=== PATIENT | male | born 1955 | race American Indian/Alaskan Native ===

== ENCOUNTER 2018-04-24 12:49 | Inpatient (IN) | payer OTHER ==
[2018-04-24 14:06] LABS: Basophils % (Auto) 0.3 % (0.0-1.8); Eosinophils % (Auto) 0.1 % (0.0-4.3); Hematocrit 42.5 % (35.5-45.6); Hemoglobin 14.6 gm/dl (11.8-15.2); Lymphocytes # (Auto) 1.3 K/mm3 (1.2-5.4); Lymphocytes % (Auto) 13.5 % (13.4-35.0); Mean Corpuscular HGB Conc 34 % (32-34); Mean Corpuscular Hemoglobin 29 pg (28-32); Mean Corpuscular Volume 85 fl (84-94); Monocytes # (Auto) 0.7 K/mm3 (0.0-0.8); Monocytes % (Auto) 7.5 % (0.0-7.3); Platelet Count 309 K/mm3 (140-440); Red Blood Count 5.01 M/mm3 (3.65-5.03); Red Cell Distribution Width 14.4 % (13.2-15.2)
[2018-04-24 14:24] LABS: BUN/Creatinine Ratio 19; Blood Urea Nitrogen 17 mg/dL (9-20); Calcium 8.6 mg/dL (8.4-10.2); Hemolysis Index 15
[2018-04-24] MEDS ORDERED: NACL 0.9% 1000 ML 1,000 ML IV ONE (14:27)
[2018-04-24] MEDS ORDERED: TYLENOL PO ONE (14:27)
--- NOTE | 2018-04-24 14:32 | Emergency Department Report ---
ED General Adult HPI - General Chief complaint: Weakness Stated complaint: WEAKNESS ALL OVER BODY Time Seen by Provider: 04/24/18 14:17 Source: patient Mode of arrival: Ambulatory Limitations: No Limitations - History of Present Illness Initial comments: Patient is 63 years old male with history of diabetes. Patient presented to the ER complaining of one-week history of generalized weakness and fever and chills and body aches. Patient stated that he went to his doctor twice and he was advised to take Motrin [id number] that his symptoms are not improving. Patient denied any cough, shortness of breath, nausea or vomiting. Patient denied any urinary symptoms. Patient denied any recent travel. 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 - Related Data Allergies Allergy/AdvReac Type Severity Reaction Status Date / Time No Known Allergies Allergy Unverified 04/24/18 13:22 ED Review of Systems ROS: Stated complaint: WEAKNESS ALL OVER BODY Other details as noted in HPI Comment: All other systems reviewed and negative Constitutional: chills, fever Respiratory: denies: cough Cardiovascular: denies: chest pain, palpitations Gastrointestinal: denies: abdominal pain, nausea, vomiting Neurological: weakness (generalized). denies: headache, numbness, paresthesias , confusion, abnormal gait, vertigo ED Past Medical Hx - Past Medical History Previous Medical History?: Yes Hx Diabetes: Yes Additional medical history: weakness - Surgical History Past Surgical History?: Yes Additional Surgical History: Right cranial surgery, Left lung surgery - Social History Smoking Status: Former Smoker Substance Use Type: Prescribed ED Physical Exam - General Limitations: No Limitations General appearance: alert, anxious - Eye Eye exam: Present: normal appearance, PERRL - ENT ENT exam: Present: normal exam, normal orophraynx, mucous membranes moist - Respiratory Respiratory exam: Present: normal lung sounds bilaterally - Cardiovascular Cardiovascular Exam: Present: regular rate, normal rhythm, normal heart sounds - GI/Abdominal GI/Abdominal exam: Present: soft, normal bowel sounds. Absent: distended, tenderness, guarding, rebound, rigid, organomegaly, mass, bruit, pulsatile mass - Extremities Exam Extremities exam: Present: normal inspection, full ROM, normal capillary refill. Absent: pedal edema, calf tenderness - Back Exam Back exam: Present: normal inspection, full ROM. Absent: tenderness, CVA tenderness (R), CVA tenderness (L), muscle spasm, paraspinal tenderness - Neurological Exam Neurological exam: Present: alert, oriented X3, CN II-XII intact, normal gait - Skin Skin exam: Present: warm, intact, normal color ED Course Vital Signs 04/24/18 04/24/18 04/24/18 13:22 14:42 18:34 Temperature 100.4 F H 98.3 F Pulse Rate 94 H 68 Respiratory 18 18 20 Rate Blood Pressure 113/55 Blood Pressure 112/55 [Left] O2 Sat by Pulse 97 98 Oximetry ED Medical Decision Making - Lab Data Result diagrams: 04/24/18 13:41 04/24/18 13:41 - Radiology Data Radiology results: report reviewed Referring Physician: LISA DUDLEY Patient Name: CRUZ MULTANI Date of : 1955 Sex: Male Report Date: 2018-04-24 Report Status: [place] [address] XRay Report Signed Patient: CRUZ MULTANI MR#: [id number] : 1955 Acct:[id number] Age/Sex: 63 / M ADM Date: 04/24/18 Loc: ED Attending Dr: Ordering Physician: LISA DUDLEY Date of Service: 04/24/18 Procedure(s): XR chest 1V ap Accession Number(s): [id number] cc: LISA DUDLEY Fluoro Time In Minutes: FINAL REPORT EXAM: XR CHEST 1V AP HISTORY: FEVER TECHNIQUE: Frontal semi erect portable chest x-ray Comparison: None FINDINGS: There is an ill-defined right infrahilar very fine reticular infiltrate. Heart size is normal. Lungs are otherwise clear. There is slight blunting of left costophrenic sulcus, chronicity is uncertain. IMPRESSION: Right middle lobe or lower lobe infiltrate. Need two view chest to localize. Mild blunting of left costophrenic sulcus may represent effusion or chronic scar. Transcribed By: COLLEEN Dictated By: MINNIE LOPEZ Electronically Authenticated By: MINNIE LOPEZ Signed Date/Time: 04/24/18 160 DD/ 04 TD/TT: 04/24/18 1605 - Medical Decision Making I discuss the patient was Dr. Cortés, he agreed to admit the patient to medical service. Critical care attestation.: If time is entered above; I have spent that time in minutes in the direct care of this critically ill patient, excluding procedure time. ED Disposition Clinical Impression: Right lower lobe pneumonia, Influenza A, Elevated liver enzymes Disposition: OP ADMIT IP TO THIS HOSP Is pt being admited?: Yes Condition: Stable Instructions: Bacterial Pneumonia (ED) Referrals: PRIMARY CARE, [Primary Care Provider] - 3-5 Days
[2018-04-24 14:51] LABS: Bacteria,Urine 1+ /HPF (Negative); Bilirubin,Urine NEG (Negative); Blood,Urine LG (Negative); Color,Urine Yellow (Yellow); Hyaline Casts,Urine 1 /LPF; Mucus,Urine FEW /HPF
[2018-04-24 15:33] LABS: Albumin 3.5 g/dL (3.9-5)
--- NOTE | 2018-04-24 16:13 | XRay Report ---
FINAL REPORT EXAM: XR CHEST 1V AP HISTORY: FEVER TECHNIQUE: Frontal semi erect portable chest x-ray Comparison: None FINDINGS: There is an ill-defined right infrahilar very fine reticular infiltrate. Heart size is normal. Lungs are otherwise clear. There is slight blunting of left costophrenic sulcus, chronicity is uncertain. IMPRESSION: Right middle lobe or lower lobe infiltrate. Need two view chest to localize. Mild blunting of left costophrenic sulcus may represent effusion or chronic scar.
[2018-04-24] MEDS ORDERED: ROCEPHIN/NS 1 GM/50 ML 1 GM/50 ML BAG IV ONE (17:30)
[2018-04-24] MEDS ORDERED: ZITHROMAX 500 MG in NACL 0.9% 250ML 250 ML IV ONE (17:30)
[2018-04-24] MEDS ORDERED: TYLENOL PO PRN (18:35)
[2018-04-24] MEDS ORDERED: PROVENTIL IH PRN (18:35)
[2018-04-24] MEDS ORDERED: SODIUM CHLORIDE FLUSH SYRINGE 10 ML IV PRN (18:35)
[2018-04-24] MEDS ORDERED: ZOFRAN IV PRN (18:35)
--- NOTE | 2018-04-24 19:32 | History and Physical Report ---
History of Present Illness Chief complaint: I feel sick History of present illness: 63 YO Male with DM presents to ED for evaluation. Pt states that he has experienced generalized weakness, subjective fever, shaking chills and body aches for the past week with worsening symptoms over the past 2 days. Patient states that he was seen and evaluated by his PCP twice and treated with outpatient therapy. Pt seen and evaluated in ED and found to have Infleuenza, as well as RLL Pneumonia. Pt denies CP, Palpitations, NVD, Syncope, Trauma, BRBPR, Unintentional Weight loss. 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 Pt admitted to telemetry. Past History Past Medical History: diabetes Past Surgical History: Other (Left Lung, Brain surgery) Social history: single. denies: smoking, alcohol abuse, prescription drug abuse Family history: hypertension Medications and Allergies Allergies Allergy/AdvReac Type Severity Reaction Status Date / Time No Known Allergies Allergy Unverified 04/24/18 13:22 Active Meds: Active Medications Acetaminophen (Tylenol) 650 mg PO Q4H PRN PRN Reason: Pain MILD(1-3)/Fever >100.5/PENA Albuterol (Proventil) 2.5 mg IH Q4HRT PRN PRN Reason: Shortness Of Breath Azithromycin 500 mg/ Sodium (Chloride) 250 mls @ 250 mls/hr IV Q24HR JES; Protocol Ceftriaxone Sodium (Rocephin/Ns 1 Gm/50 Ml) 1 gm in 50 mls @ 100 mls/hr IV Q24HR JES; Protocol Ondansetron HCl (Zofran) 4 mg IV Q8H PRN PRN Reason: Nausea And Vomiting Oseltamivir Phosphate (Tamiflu) 75 mg PO BID [facility] Stop: 04/29/18 10:01 Sodium Chloride (Sodium Chloride Flush Syringe 10 Ml) 10 ml IV BID JES Sodium Chloride (Sodium Chloride Flush Syringe 10 Ml) 10 ml IV PRN PRN PRN Reason: LINE FLUSH Review of Systems Constitutional: fever, sweats, fatigue, weakness, malaise, no weight loss, no weight gain Ears, nose, mouth and throat: no ear pain, no ear discharge, no tinnitis, no decreased hearing, no nose pain, no nasal congestion, no nasal discharge Cardiovascular: decreased exercise tolerance, no chest pain, no orthopnea, no palpitations, no rapid/irregular heart beat, no edema, no syncope Respiratory: no cough, no cough with sputum, no excessive sputum, no hemoptysis , no shortness of breath Gastrointestinal: no abdominal pain, no nausea, no vomiting, no diarrhea, no constipation Genitourinary Male: no flank pain, no discharge, no urinary frequency, no urinary hesitancy, no nocturia Rectal: no pain, no incontinence, no bleeding Musculoskeletal: no neck stiffness, no neck pain, no shooting arm pain, no arm numbness/tingling, no low back pain, no shooting leg pain Integumentary: no rash, no pruritis, no redness, no sores, no wounds, no jaundice Neurological: no head injury, no transient paralysis, no paralysis, no weakness , no parathesias, no numbness, no tingling, no seizures, no syncope Psychiatric: no anxiety, no memory loss, no change in sleep habits, no sleep disturbances, no insomnia, no hypersomnia, no change in appetite, no change in libido, no suicidal ideation Endocrine: no cold intolerance, no heat intolerance, no polyphagia, no excessive thirst, no polydipsia, no polyuria Hematologic/Lymphatic: no easy bruising, no easy bleeding, no lymphadenopathy, no lymphedema Allergic/Immunologic: no urticaria, no allergic rhinitis, no wheezing, no persistent infections, no anaphylaxis, no angioedema Exam - Constitutional Vitals: Temp Pulse Resp BP Pulse Ox 98.3 F 68 20 112/55 98 04/24/18 18:34 04/24/18 18:34 04/24/18 18:34 04/24/18 18:34 04/24/18 18:34 General appearance: Present: mild distress, disheveled - EENT Eyes: Present: PERRL ENT: hearing intact, clear oral mucosa - Neck Neck: Present: supple, normal ROM - Respiratory Respiratory effort: normal Respiratory: right: diminished, rhonchi, bilateral: CTA - Cardiovascular Heart Sounds: Present: S1 & S2. Absent: rub, click - Extremities Extremities: pulses symmetrical, No edema Peripheral Pulses: within normal limits - Abdominal General gastrointestinal: Present: soft, non-tender, non-distended, normal bowel sounds Male genitourinary: Present: normal - Integumentary Integumentary: Present: clear, warm, dry - Musculoskeletal Musculoskeletal: gait normal, strength equal bilaterally - Psychiatric Psychiatric: appropriate mood/affect, intact judgment & insight - Neurologic Neurologic: CNII-XII intact, moves all extremities Results - Labs CBC & Chem 7: 04/24/18 13:41 04/24/18 13:41 Labs: Abnormal lab results 04/24/18 04/24/18 04/24/18 Range/Units 13:38 13:41 13:41 [place] % (Auto) 7.5 H (0.0-7.3) % Seg Neutrophils % 78.6 H (40.0-70.0) % Sodium 127 L (137-145) mmol/L Chloride 83.4 L (98-107) mmol/L Glucose 122 H (75-100) mg/dL POC Glucose 130 H (70-105) Lactic Acid (0.7-2.0) mmol/L Total Bilirubin (0.1-1.2) mg/dL Direct Bilirubin (0-0.2) mg/dL AST (5-40) units/L ALT (7-56) units/L Albumin (3.9-5) g/dL Influenza A (Rapid) (Negative) 04/24/18 04/24/18 04/24/18 Range/Units 14:43 14:43 Unknown [place] % (Auto) (0.0-7.3) % Seg Neutrophils % (40.0-70.0) % Sodium (137-145) mmol/L Chloride (98-107) mmol/L Glucose (75-100) mg/dL POC Glucose (70-105) Lactic Acid 2.10 H* (0.7-2.0) mmol/L Total Bilirubin 1.60 H (0.1-1.2) mg/dL Direct Bilirubin 1.0 H (0-0.2) mg/dL AST 429 H (5-40) units/L ALT 139 H (7-56) units/L Albumin 3.5 L (3.9-5) g/dL Influenza A (Rapid) Positive A (Negative) Assessment and Plan - Patient Problems (1) Sepsis Current Visit: Yes Status: Acute Qualifiers: Sepsis type: sepsis due to unspecified organism Qualified Code(s): A41.9 - Sepsis, unspecified organism Plan to address problem: Sepsis Protocol: Iv antibiotics, IVF resuscitation therapy, serial lactic acid, blood cultures, urinalysis, chest x ray (2) Elevated LFTs Current Visit: Yes Status: Acute Plan to address problem: suspect secondary to Influenza, supportive care, repeat LFT (3) Influenza A Current Visit: Yes Status: Acute Plan to address problem: Tamiflu BID, Airborne precautions, supportive care. (4) Right lower lobe pneumonia Current Visit: Yes Status: Acute Qualifiers: Pneumonia type: due to influenza A virus Qualified Code(s): J11.00 - Influenza due to unidentified influenza virus with unspecified type of pneumonia Plan to address problem: IV antibiotic therapy, treat influenza, supplemental oxygen, nebulizer therapy, Chest x ray. (5) DVT prophylaxis Current Visit: Yes Status: Acute Plan to address problem: SCD to BLE while in bed.
[2018-04-24] MEDS ORDERED: NACL 0.9% 1000 ML IV ONE (19:42)
[2018-04-24] MEDS ORDERED: NACL 0.9% 1000 ML 1,000 ML ONE (20:55)
[2018-04-24] MEDS: TAMIFLU PO SCH (22:46)
[2018-04-24] MEDS: SODIUM CHLORIDE FLUSH SYRINGE 10 ML IV SCH (22:58)
--- NOTE | 2018-04-25 08:58 | Progress Note ---
Assessment and Plan Assessment and plan: Patient is a 63 yo man with a history of Type 2 DM who presented to ED with malaise and fevers. * Influenza A positive * Initial labs: Total bilirubin 1.6 and direct bilirubin 1.0, Na 127. BG 130, AST 429, ALT 130, ALk Phos 96, UA unremarkable for UTI * pCXR IMPRESSION: Right middle lobe or lower lobe infiltrate. Need two view chest to localize. Mild blunting of left costophrenic sulcus may represent effusion or chronic scar==>2v CXR IMPRESSION: Increased patchy pneumonia in the right lower lobe. -Sepsis due to Aspiration Pneumonia: treat with iv abx, ivf, follow cultures -Influenza A infection, Bilingual Speech Therapist exposure: treat with anti-viral -Elevated transaminases: get Abd. U/S, repeat levels in am, treat with IVF -Aspiration Right Pneumonia: get 2 view to localize infiltrate -Type 2 DM: add ssi, ada -DVT prophylaxis: scd and heparin History Interval history: Patient was seen and examined. Follow-up on current diagnosis fevers. Overnight uneventful. Patient denies any chest pain, shortness breath, nausea/vomiting or severe headaches. Imaging, nursing note, chart, labs and old chart reviewed. Discussed with patient. Hospitalist Physical - Physical exam Narrative exam: GEN: WDWN, NAD, Awake, Alert, Orientated HEENT: NCAT, EOMI, PERRL, OP Clear NECK: supple, no adenopathy, no thyromegaly, no JVD CVS/HEART: RRR, normal S1S2, pulses present bilaterally CHEST/LUNGS: diminished bs bilateral, Symmetrical chest expansion, good air entry bilaterally GI/Abdomen: soft, NTND, good bowel sounds, no guarding or rebound /Bladder: no suprapubic tenderness, no CVA or paraspinal tenderness EXT/Skin: no c/c/e, no obvious rash MSK: FROM x 4 Neuro: CN 2-12 grossly intact, no new focal deficits Psych: calm - Constitutional Vitals: Temp Pulse Resp BP Pulse Ox 98.4 F 72 18 115/64 91 04/25/18 06:29 04/25/18 06:29 04/25/18 06:29 04/25/18 06:29 04/25/18 06:29 Results - Labs CBC & Chem 7: 04/24/18 13:41 04/24/18 13:41 Labs: Laboratory Last Values WBC 9.4 K/mm3 (4.5-11.0) 04/24/18 13:41 RBC 5.01 M/mm3 (3.65-5.03) 04/24/18 13:41 Hgb 14.6 gm/dl (11.8-15.2) 04/24/18 13:41 Hct 42.5 % (35.5-45.6) 04/24/18 13:41 MCV 85 fl (84-94) 04/24/18 13:41 MCH 29 pg (28-32) 04/24/18 13:41 MCHC 34 % (32-34) 04/24/18 13:41 RDW 14.4 % (13.2-15.2) 04/24/18 13:41 Plt Count 309 K/mm3 (140-440) 04/24/18 13:41 Lymph % (Auto) 13.5 % (13.4-35.0) 04/24/18 13:41 [place] % (Auto) 7.5 % (0.0-7.3) H 04/24/18 13:41 Eos % (Auto) 0.1 % (0.0-4.3) 04/24/18 13:41 Baso % (Auto) 0.3 % (0.0-1.8) 04/24/18 13:41 Lymph # 1.3 K/mm3 (1.2-5.4) 04/24/18 13:41 [place] # 0.7 K/mm3 (0.0-0.8) 04/24/18 13:41 Eos # 0.0 K/mm3 (0.0-0.4) 04/24/18 13:41 Baso # 0.0 K/mm3 (0.0-0.1) 04/24/18 13:41 Seg Neutrophils % 78.6 % (40.0-70.0) H 04/24/18 13:41 Seg Neutrophils # 7.4 K/mm3 (1.8-7.7) 04/24/18 13:41 Sodium 127 mmol/L (137-145) L 04/24/18 13:41 Potassium 3.7 mmol/L (3.6-5.0) 04/24/18 13:41 Chloride 83.4 mmol/L (98-107) L 04/24/18 13:41 Carbon Dioxide 25 mmol/L (22-30) 04/24/18 13:41 Anion Gap 22 mmol/L 04/24/18 13:41 BUN 17 mg/dL (9-20) 04/24/18 13:41 Creatinine 0.9 mg/dL (0.8-1.5) 04/24/18 13:41 Estimated GFR > 60 ml/min 04/24/18 13:41 BUN/Creatinine Ratio 19 % 04/24/18 13:41 Glucose 122 mg/dL (75-100) H 04/24/18 13:41 POC Glucose 130 (70-105) H 04/24/18 13:38 Lactic Acid 1.40 mmol/L (0.7-2.0) 04/25/18 05:27 Calcium 8.6 mg/dL (8.4-10.2) 04/24/18 13:41 Total Bilirubin 1.60 mg/dL (0.1-1.2) H 04/24/18 14:43 Direct Bilirubin 1.0 mg/dL (0-0.2) H 04/24/18 14:43 Indirect Bilirubin 0.6 mg/dL 04/24/18 14:43 AST 429 units/L (5-40) H 04/24/18 14:43 ALT 139 units/L (7-56) H 04/24/18 14:43 Alkaline Phosphatase 96 units/L (35-129) 04/24/18 14:43 Total Protein 7.4 g/dL (6.3-8.2) 04/24/18 14:43 Albumin 3.5 g/dL (3.9-5) L 04/24/18 14:43 Albumin/Globulin Ratio 0.9 % 04/24/18 14:43 Urine Color Yellow (Yellow) 04/24/18 13:57 Urine Turbidity Slightly-cloudy (Clear) 04/24/18 13:57 Urine pH 6.0 (5.0-7.0) 04/24/18 13:57 Ur Specific [place] 1.012 (1.003-1.030) 04/24/18 13:57 Urine Protein 100 mg/dl mg/dL (Negative) 04/24/18 13:57 Urine Glucose (UA) Neg mg/dL (Negative) 04/24/18 13:57 Urine Ketones Tr mg/dL (Negative) 04/24/18 13:57 Urine Blood Lg (Negative) 04/24/18 13:57 Urine Nitrite Neg (Negative) 04/24/18 13:57 Urine Bilirubin Neg (Negative) 04/24/18 13:57 Urine Urobilinogen 4.0 mg/dL (<2.0) 04/24/18 13:57 Ur Leukocyte Esterase Neg (Negative) 04/24/18 13:57 Urine WBC (Auto) 6.0 /HPF (0.0-6.0) 04/24/18 13:57 Urine RBC (Auto) 4.0 /HPF (0.0-6.0) 04/24/18 13:57 U Epithel Cells (Auto) 1.0 /HPF (0-13.0) 04/24/18 13:57 Urine Bacteria (Auto) 1+ /HPF (Negative) 04/24/18 13:57 Hyaline Casts 1 /LPF 04/24/18 13:57 Urine Mucus Few /HPF 04/24/18 13:57 Influenza A (Rapid) Positive (Negative) A 04/24/18 Unknown Influenza B (Rapid) Negative (Negative) 04/24/18 Unknown
[2018-04-25] MEDS: ROCEPHIN/NS 1 GM/50 ML 1 GM/50 ML BAG IV SCH (10:45)
[2018-04-25] MEDS: SODIUM CHLORIDE FLUSH SYRINGE 10 ML IV SCH ×2 (10:46→21:23)
--- NOTE | 2018-04-25 10:52 | XRay Report ---
FINAL REPORT EXAM: XR CHEST ROUTINE 2V HISTORY: pneumonia COMPARISON: Chest radiograph performed on 04/24/2018 TECHNIQUE: Frontal and lateral views of the chest FINDINGS: The cardiomediastinal silhouette is normal in appearance. There is increased patchy opacity in the right lower lobe. No pleural effusion or pneumothorax. No acute bony or soft tissue abnormality. IMPRESSION: Increased patchy pneumonia in the right lower lobe.
[2018-04-25] MEDS: TAMIFLU PO SCH ×2 (11:36→21:23)
[2018-04-25] MEDS: ZITHROMAX 500 MG in NACL 0.9% 250ML 250 ML IV SCH ×2 (11:37→11:59)
[2018-04-25] MEDS ORDERED: PNEUMOVAX 23 IM ONE (12:00)
--- NOTE | 2018-04-25 19:15 | Ultrasound Report ---
FINAL REPORT EXAM: US ABDOMEN COMPLETE HISTORY: sepsis, elevated LFT TECHNIQUE: Standard ultrasound of the abdomen PRIORS: None. FINDINGS: Examination of the gallbladder is partially collapsed and demonstrates no evidence for gallstones, distention, wall thickening, or pericholecystic fluid. No sonographic Kam's sign is elicited. Common bile duct is normal in diameter measuring 3.8 mm. The liver is normal and homogeneous in echogenicity without focal abnormality or intrahepatic biliary dilatation. The pancreas is normal in thickness without focal abnormality or pancreatic duct dilatation. The spleen is normal in length measuring 8.4 cm and homogeneous in echogenicity without focal abnormalities. Examination of the kidneys demonstrates both to be normal in size and have normal cortical echogenicity and thickness. The right and left kidneys measure 11.7 cm and 11.8 cm in craniocaudal length, respectively. No evidence for hydronephrosis is seen in either kidney. There is a small non shadowing echogenic focus in the upper pole right kidney measuring 3 mm. This may represent a small calculus or vascular calcification. This could also represent a fatty mass such as angiomyolipoma. The inferior vena cava and aorta are normal. Maximum diameter of the aorta is 2.5 cm in its proximal portion. There is an incidental small right pleural effusion. IMPRESSION: 1. No acute abnormality in the abdomen 2. Small echogenic focus in the upper pole right kidney which may represent a small calculus or angiomyolipoma.
[2018-04-26 05:57] LABS: Hematocrit 37.5 % (35.5-45.6); Hemoglobin 12.3 gm/dl (11.8-15.2); Mean Corpuscular HGB Conc 33 % (32-34); Mean Corpuscular Hemoglobin 28 pg (28-32); Mean Corpuscular Volume 84 fl (84-94); Platelet Count 362 K/mm3 (140-440); Red Blood Count 4.44 M/mm3 (3.65-5.03); Red Cell Distribution Width 14.4 % (13.2-15.2)
[2018-04-26 06:02] LABS: Alanine Aminotransferase 100 units/L (7-56); Albumin 3.1 g/dL (3.9-5); BUN/Creatinine Ratio 16; Blood Urea Nitrogen 8 mg/dL (9-20); Calcium 7.8 mg/dL (8.4-10.2); Hemolysis Index 0
[2018-04-26 06:08] LABS: INR 1.01 (0.87-1.13); Partial Thromboplastin Time 30.1 Sec. (24.2-36.6)
--- NOTE | 2018-04-26 06:59 | Progress Note ---
Assessment and Plan Assessment and plan: Patient is a 63 yo man with a history of Type 2 DM who presented to ED with malaise and fevers. * Influenza A positive * Initial labs: Total bilirubin 1.6 and direct bilirubin 1.0, Na 127. BG 130, AST 429, ALT 130, ALk Phos 96, UA unremarkable for UTI * pCXR IMPRESSION: Right middle lobe or lower lobe infiltrate. Need two view chest to localize. Mild blunting of left costophrenic sulcus may represent effusion or chronic scar==>2v CXR IMPRESSION: Increased patchy pneumonia in the right lower lobe. -Sepsis due to Aspiration Pneumonia: treat with iv abx, ivf, follow cultures -Influenza A infection, Wheel Aligner exposure: treat with anti-viral -Elevated transaminases: get Abd. U/S==>Abd u/s Impression: 1. No acute abnormality in the abdomen 2. Small (3mm) echogenic focus in the upper pole right kidney which may represent a small calculus or angiomyolipoma. -Aspiration Right Pneumonia: get 2 view to localize infiltrate -Type 2 DM: add ssi, ada -DVT prophylaxis: scd and heparin Disposition: continue iv abx x today and possibly discharge tomorrow with abx and antiviral for 3 more days History Interval history: Patient was seen and examined. Follow-up on current diagnosis fevers. Overnight uneventful. Patient denies any chest pain, shortness breath, nausea/vomiting or severe headaches. Imaging, nursing note, chart, labs and old chart reviewed. Discussed with patient. Hospitalist Physical - Physical exam Narrative exam: GEN: WDWN, NAD, Awake, Alert, Orientated x 3 HEENT: NCAT, EOMI, PERRL, OP Clear NECK: supple, no adenopathy, no thyromegaly, no JVD CVS/HEART: Regular bradycardia, normal S1S2, pulses present bilaterally CHEST/LUNGS: diminished bs bilateral, Symmetrical chest expansion, good air entry bilaterally GI/Abdomen: soft, NTND, good bowel sounds, no guarding or rebound /Bladder: no suprapubic tenderness, no CVA or paraspinal tenderness EXT/Skin: no c/c/e, no obvious rash MSK: FROM x 4 Neuro: CN 2-12 grossly intact, no new focal deficits Psych: calm - Constitutional Vitals: Temp Pulse Resp BP Pulse Ox 97.7 F 52 L 24 106/69 95 08/20/18 05:44 04/26/18 05:44 04/26/18 05:44 04/26/18 05:44 04/26/18 05:44 General appearance: Absent: mild distress, disheveled Results - Labs CBC & Chem 7: 04/26/18 05:09 04/26/18 05:08 Labs: Laboratory Last Values WBC 4.9 K/mm3 (4.5-11.0) 04/26/18 05:09 RBC 4.44 M/mm3 (3.65-5.03) 04/26/18 05:09 Hgb 12.3 gm/dl (11.8-15.2) 04/26/18 05:09 Hct 37.5 % (35.5-45.6) 04/26/18 05:09 MCV 84 fl (84-94) 04/26/18 05:09 MCH 28 pg (28-32) 04/26/18 05:09 MCHC 33 % (32-34) 04/26/18 05:09 RDW 14.4 % (13.2-15.2) 04/26/18 05:09 Plt Count 362 K/mm3 (140-440) 04/26/18 05:09 Lymph % (Auto) 13.5 % (13.4-35.0) 04/24/18 13:41 [place] % (Auto) 7.5 % (0.0-7.3) H 04/24/18 13:41 Eos % (Auto) 0.1 % (0.0-4.3) 04/24/18 13:41 Baso % (Auto) 0.3 % (0.0-1.8) 04/24/18 13:41 Lymph # 1.3 K/mm3 (1.2-5.4) 04/24/18 13:41 [place] # 0.7 K/mm3 (0.0-0.8) 04/24/18 13:41 Eos # 0.0 K/mm3 (0.0-0.4) 04/24/18 13:41 Baso # 0.0 K/mm3 (0.0-0.1) 04/24/18 13:41 Seg Neutrophils % 78.6 % (40.0-70.0) H 04/24/18 13:41 Seg Neutrophils # 7.4 K/mm3 (1.8-7.7) 04/24/18 13:41 PT 13.8 Sec. (12.2-14.9) 04/26/18 05:08 INR 1.01 (0.87-1.13) 04/26/18 05:08 APTT 30.1 Sec. (24.2-36.6) 04/26/18 05:08 Sodium 137 mmol/L (137-145) D 04/26/18 05:08 Potassium 3.7 mmol/L (3.6-5.0) 04/26/18 05:08 Chloride 96.9 mmol/L (98-107) L 04/26/18 05:08 Carbon Dioxide 27 mmol/L (22-30) 04/26/18 05:08 Anion Gap 17 mmol/L 04/26/18 05:08 BUN 8 mg/dL (9-20) L 04/26/18 05:08 Creatinine 0.5 mg/dL (0.8-1.5) L 04/26/18 05:08 Estimated GFR > 60 ml/min 04/26/18 05:08 BUN/Creatinine Ratio 16 % 04/26/18 05:08 Glucose 148 mg/dL (75-100) H 04/26/18 05:08 POC Glucose 130 (70-105) H 04/24/18 13:38 Lactic Acid 1.40 mmol/L (0.7-2.0) 04/25/18 05:27 Calcium 7.8 mg/dL (8.4-10.2) L 04/26/18 05:08 Total Bilirubin 0.80 mg/dL (0.1-1.2) 04/26/18 05:08 Direct Bilirubin 1.0 mg/dL (0-0.2) H 04/24/18 14:43 Indirect Bilirubin 0.6 mg/dL 04/24/18 14:43 AST 207 units/L (5-40) H 04/26/18 05:08 ALT 100 units/L (7-56) H 04/26/18 05:08 Alkaline Phosphatase 76 units/L (35-129) 04/26/18 05:08 Total Protein 6.1 g/dL (6.3-8.2) L 04/26/18 05:08 Albumin 3.1 g/dL (3.9-5) L 04/26/18 05:08 Albumin/Globulin Ratio 1.0 % 04/26/18 05:08 TSH 1.850 mlU/mL (0.270-4.200) 04/26/18 05:08 Urine Color Yellow (Yellow) 04/24/18 13:57 Urine Turbidity Slightly-cloudy (Clear) 04/24/18 13:57 Urine pH 6.0 (5.0-7.0) 04/24/18 13:57 Ur Specific [place] 1.012 (1.003-1.030) 04/24/18 13:57 Urine Protein 100 mg/dl mg/dL (Negative) 04/24/18 13:57 Urine Glucose (UA) Neg mg/dL (Negative) 04/24/18 13:57 Urine Ketones Tr mg/dL (Negative) 04/24/18 13:57 Urine Blood Lg (Negative) 04/24/18 13:57 Urine Nitrite Neg (Negative) 04/24/18 13:57 Urine Bilirubin Neg (Negative) 04/24/18 13:57 Urine Urobilinogen 4.0 mg/dL (<2.0) 04/24/18 13:57 Ur Leukocyte Esterase Neg (Negative) 04/24/18 13:57 Urine WBC (Auto) 6.0 /HPF (0.0-6.0) 04/24/18 13:57 Urine RBC (Auto) 4.0 /HPF (0.0-6.0) 04/24/18 13:57 U Epithel Cells (Auto) 1.0 /HPF (0-13.0) 04/24/18 13:57 Urine Bacteria (Auto) 1+ /HPF (Negative) 04/24/18 13:57 Hyaline Casts 1 /LPF 04/24/18 13:57 Urine Mucus Few /HPF 04/24/18 13:57 Influenza A (Rapid) Positive (Negative) A 04/24/18 Unknown Influenza B (Rapid) Negative (Negative) 04/24/18 Unknown
[2018-04-26] MEDS: TAMIFLU PO SCH ×2 (10:02→22:55)
[2018-04-26] MEDS: SODIUM CHLORIDE FLUSH SYRINGE 10 ML IV SCH ×2 (10:04→22:56)
[2018-04-26] MEDS: ZITHROMAX 500 MG in NACL 0.9% 250ML 250 ML IV SCH (10:04)
[2018-04-26] MEDS: ROCEPHIN/NS 1 GM/50 ML 1 GM/50 ML BAG IV SCH (10:05)
--- NOTE | 2018-04-27 08:59 | Discharge Summary ---
Providers - Providers Date of Admission: 04/24/18 18:35 Date of discharge: 04/27/18 Attending physician: RANDAL ALEXANDER Primary care physician: [employer] DESIGN[employer] Hospitalization Condition: Stable Hospital course: Patient is a 63 yo man with a history of Type 2 DM who presented to ED with malaise and fevers. * Influenza A positive * Initial labs: Total bilirubin 1.6 and direct bilirubin 1.0, Na 127. BG 130, AST 429, ALT 130, ALk Phos 96, UA unremarkable for UTI * pCXR IMPRESSION: Right middle lobe or lower lobe infiltrate. Need two view chest to localize. Mild blunting of left costophrenic sulcus may represent effusion or chronic scar==>2v CXR IMPRESSION: Increased patchy pneumonia in the right lower lobe. -Sepsis due to Aspiration Pneumonia: treat with iv abx, ivf, follow cultures -Influenza A infection, Baseball Winder exposure: treat with anti-viral -Elevated transaminases: get Abd. U/S==>Abd u/s Impression: 1. No acute abnormality in the abdomen 2. Small (3mm) echogenic focus in the upper pole right kidney which may represent a small calculus or angiomyolipoma ( asymptomatic) -Aspiration Right Pneumonia: get 2 view to localize infiltrate -Type 2 DM: add ssi, ada -DVT prophylaxis: scd and heparin Discharge with abx and antiviral for 3 more days Disposition: DC-01 TO HOME OR SELFCARE Time spent for discharge: 35 minutes Core Measure Documentation - Palliative Care Palliative Care/ Comfort Measures: Not Applicable - Core Measures Any of the following diagnoses?: none - VTE Discharge Requirements Deep Vein Thrombosis/Pulmonary Embolism Present on Admission: No Has pt received <5 days of overlap therapy or INR<2.0: No Anticoagulant overlap therapy prescribed at discharge: No Contraindication No Overlap Therapy order at DC: Not Indicated Exam - Physical Exam Narrative exam: GEN: WDWN, NAD, Awake, Alert, Orientated x 3 HEENT: NCAT, EOMI, PERRL, OP Clear NECK: supple, no adenopathy, no thyromegaly, no JVD CVS/HEART: RRR, normal S1S2, pulses present bilaterally CHEST/LUNGS: diminished bs bilateral but improving, Symmetrical chest expansion , good air entry bilaterally GI/Abdomen: soft, NTND, good bowel sounds, no guarding or rebound /Bladder: no suprapubic tenderness, no CVA or paraspinal tenderness EXT/Skin: no c/c/e, no obvious rash MSK: FROM x 4 Neuro: CN 2-12 grossly intact, no new focal deficits Psych: calm - Constitutional Vitals: Temp Pulse Resp BP Pulse Ox 97.8 F 65 20 105/62 93 04/27/18 06:05 04/27/18 06:05 04/27/18 06:05 04/27/18 06:05 04/27/18 06:05 Plan Activity: other (no strenous activity until cleared by pcp) Diet: regular Follow up with: MICHELLE TOLEDO [Staff Physician] - 7 Days Prescriptions: Acetaminophen [Tylenol] 325 mg PO Q4H PRN #12 capsule PRN Reason: Non Cardiac Pain Or Temp>100.5 levoFLOXacin [Levaquin] 750 mg PO QDAY #4 tablet Oseltamivir [Tamiflu] 75 mg PO BID #6 capsule
[2018-04-27] MEDS: TAMIFLU PO SCH (09:59)
[2018-04-27] MEDS: ROCEPHIN/NS 1 GM/50 ML 1 GM/50 ML BAG IV SCH (09:59)
[2018-04-27] MEDS ORDERED: ZITHROMAX PO SCH (10:00)
[2018-04-27] MEDS: SODIUM CHLORIDE FLUSH SYRINGE 10 ML IV SCH (10:01)
[2018-04-27 11:45] VITALS: BP 106/56
== END 2018-04-27 12:45 | disposition home or self-care (01) | DRG 871 ==
LOC: ED 12:49 → 3A 18:35
PROVIDERS: ADMIT Internal Medicine; ATTEND Internal Medicine
PROC: 3E0234Z Introduction of Serum, Toxoid and Vaccine into Muscle, Percutaneous Approach (ICD-10-PCS; principal; 2018-04-25)
DX: A41.9 Sepsis, unspecified organism (principal); J10.00 Influenza due to other identified influenza virus with unspecified type of pneumonia; J69.0 Pneumonitis due to inhalation of food and vomit; R74.8 Abnormal levels of other serum enzymes; E11.9 Type 2 diabetes mellitus without complications; R74.0 Nonspecific elevation of levels of transaminase and lactic acid dehydrogenase [LDH]; Z82.49 Family history of ischemic heart disease and other diseases of the circulatory system; Z23 Encounter for immunization
CPT/HCPCS: 36415; 71045; 71046; 76700; 80048; 80053; 80074; 81001; 82140; 82962; 84443; 85025; 85027; 85610; 85730; 87040; 87400; 90732; 96361; 96365; 96367; J0456; J0696; J7030; J7050